=== PATIENT | male | born 1985 ===

== ENCOUNTER 2017-06-25 16:22 | Emergency (ER) | payer MEDICAID ==
[2017-06-25 16:28] VITALS: BP 135/84; PULSE 63; TEMP 98.1; O2SAT 97
[2017-06-25] MEDS ORDERED: Tdap Vaccine 0.5 ml Vial (10-64 yrs) IM ONE ×2 (16:45→16:55)
[2017-06-25] MEDS ORDERED: Bacitracin 500 Units/gm Oint Foilpak UD TOP ONE (16:46)
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
[2017-06-25] MEDS ORDERED: Bacitracin 500 Units/gm Oint Foilpak UD ONE (16:56)
[2017-06-25 17:21] VITALS: RESP 18
== END 2017-06-25 17:21 | disposition home or self-care (01) ==
LOC: C.ER 16:22
DX: L03.116 Cellulitis of left lower limb (principal); Z23 Encounter for immunization